=== PATIENT | male | born 1975 | race Caucasian/White ===

== ENCOUNTER 2017-04-01 20:05 | Emergency (ER) | payer SELFPAY ==
[2017-04-01 20:12] VITALS: BP 177/98; BMI 49.8
--- NOTE | 2017-04-01 23:09 | RAD ---
Three views of the left hip Indication: Classic coming from 3rd finger Findings: There is mild soft tissue swelling within the middle finger, no localizing soft tissue flui d collection or gas identified. There is cortical regularity at the base of the little finger proximal phalanx without definite lucen cy suggesting sequela of previous intra-articular fracture. Additionally there appears to be a healed fracture deformity of the ring finger metacarpal bone. Radiocarpal joint spaces and alignment are ma intained. Impression: Soft tissue swelling surrounding the middle finger distal phalanx is nonspecific however suspicious for cellulitis given patient history. No fracture, dislocation or radiopaque foreign body identified within the middle finger. Suspected chronic fracture deformities of the little finger proximal phalangeal base and ring finger metacarpal bone; however, clinical correlation for point tenderness and exclusion of acute injury in this location is recommended. Reported By:
--- NOTE | 2017-04-01 23:21 | DR.EXTPAIN ---
HPI - Time seen Time seen: 22:30 - PCP Primary Care Physician: SARAH - HPI Comment HPI Comment: SMALL DRAINAGE NOTED WHEN PATIENT SQUEEZED LESION AT HOME. NO FEVER. PAIN WORSE TODAY. - Complaint/Symptoms Chief Complaint Doctor Comments: PAIN SWELLING AND REDNESS LEFT MIDDLE FINGER TIMES FEW DAYS. Chief Complaint:: LEFT HAND, 3RD DIGIT PAIN, EDEMA. STATES, "I HAVE HAD A CALLOUS THERE FOR APPROXIMATELY A YEAR, I SQUEEZED IT AND PUS COME OUT. NOW ALL MY FINGERS ARE SORE." - Nurses notes reviewed Nurses Notes Review: Yes - Source History Provided: Patient - Mode of arrival Mode of Arrival: Ambulatory - Timing Onset of Chief Complaint: 03/31/17 - Context History of: None - Associated signs and symptoms Associated Signs and Symptoms: Pain, Swelling PMH - PMH Past Medical History: Yes Past Medical History: Hypertension Past Surgical History: No - Family History History of Family Medical Conditions: Yes Family Medical History: Coronary Artery Disease, Hypertension - Social History Type of Tobacco Use: Cigarettes Alcohol Use: None Do you use any recreational Drugs:: No Lives With: Significant Other Lives Where: Home - infectious screening Have you traveled outside the country in the last 6 months?: No Isolation: Standard ROS - Review of Systems Constitutional: No Symptoms Reported Eyes: No Symptoms Reported ENTM: No Symptoms Reported Respiratoy: No Symptoms Reported Cardiovascular: No Symptoms Reported Gastrointestinal/Abdominal: No Symptoms Reported Genitourinary: No Symptoms Reported Neurological: No Symptoms Reported Integumentary: Change in Color, Lesions (ABSCESS AND CELLULITIS LEFT MIDDLE FINGER.) Hematologic/Lymphatic: No Symptoms Reported Endocrine: No Symptoms Reported All Other Systems: Reviewed and Negative PE - Vital Signs Vitals: Temperature 98.2 F Pulse Rate 96 Respiratory Rate 20 Blood Pressure 177/98 O2 Sat by Pulse Oximetry 95 - General Limitations: No Limitations General Appearance: Alert - Head Head Exam: Normal Inspection - Eyes Eye exam: Normal Appearance - ENT ENT Exam: Normal External Ear Exam - Neck Neck Exam: Normal Inspection - Chest Chest Inspection: Symmetric Chest Wall Rise - Respiratory Respiratory Exam: Normal Lung Sounds Bilat Respiratory Exam: Bilateral Clear to Auscultation - Cardiovascular Cardiovascular Exam: Regular Rate, Normal Rhythm, Normal Heart Sounds - Abdominal Exam Abdominal Exam: Normal Inspection - Extremities Extremities Exam: Tenderness (SWELLING, REDNESS AND TENDERNESS LT MIDDLE FINGER. ) - Lower Extremities Neurovascular/Tendon Exam: Normal Capillary Refill Gait Exam: Observed and Normal - Back Back Exam: Normal Inspection - Neurological Neurological Exam: Alert, Oriented X3 - Psychiatric Psychiatric Exam: Normal Affect, Normal Mood - Skin Skin Exam: Erythema MDM - Differential Diagnosis Differential Diagnosis: Other (CELLULITIS, ABSCESS. LT MIDDLE FONGER INFECTION) Course - Treatment Treatment: SEE ORDERS. - Education/Counseling Education/Counseling: Patient, Family, Education Educated On: Treatment, Diagnosis, Needs for Follow Up ROR - Labs Reviewed Laboratory: 04/01/17 03:26 Hand - Left Gram Stain - Final 04/01/17 03:26 Hand - Left Wound Culture - Preliminary - XRAY XRAY Interpreted by: Radiologist XRAY Findings: REPORT DISCUSS WITH PATIENT. Procedures - Incision and Drainage Blade Size: 11 I & D Procedure: betadine prep, sterile dressing applied Progress: I&D DONE ON LEFT DISTAL MIDDLE FINGER. SMALL AMOUNT OF PUS DRAINED. - Diagnosis Discharge Problem: Abscess, Infection of fingernail of left hand Cellulitis Qualifiers: Site of cellulitis: extremity Site of cellulitis of extremity: finger Laterality: left Qualified Code(s): L03.012 - Cellulitis of left finger - Discharge Plan Disposition: 01 HOME, SELF-CARE Condition: Stable Prescriptions: Clindamycin HCl 300 mg PO Q6H #40 cap Sulfamethoxazole/Trimethoprim [Bactrim 400-80 mg] 1 tab PO Q12H #20 tab Tramadol HCl 50 mg PO Q8H PRN #15 tablet PRN Reason: - Follow ups/Referrals Follow ups/Referrals: NFD,None [Primary Care Provider] - 04/05/17 - Instructions Instructions: Abscess, [id number], Cellulitis, Adult, [id number] Additional Instructions: RETURN TO ED IF WORSE.
[2017-04-02] MEDS ORDERED: ANCEF VIAL 1 GM IM ONE (01:18)
[2017-04-02] MEDS ORDERED: TORADOL 60 MG VIAL IM ONE (01:18)
[2017-04-02] MEDS ORDERED: BACTRIM DS TAB PO ONE ×2 (01:18→01:27)
[2017-04-02] MEDS ORDERED: CLEOCIN PO ONE (01:19)
[2017-04-02] MEDS ORDERED: TORADOL 60 MG VIAL ONE (01:26)
[2017-04-02] MEDS ORDERED: CLEOCIN ONE (01:27)
[2017-04-02] MEDS ORDERED: ANCEF VIAL 1 GM ONE (01:27)
== END 2017-04-02 01:46 | disposition home or self-care (01) ==
LOC: ER 20:23
DX: L02.512 Cutaneous abscess of left hand (principal); L03.012 Cellulitis of left finger; L08.9 Local infection of the skin and subcutaneous tissue, unspecified
CPT/HCPCS: 73130; 87070; 87075; 87077; 87186; 87205; 96372; 99282; 99283; J0690; J1885

== ENCOUNTER 2024-07-28 07:30 | Observation (INO) ==
[2024-07-28] MEDS: NOZIN NASAL SANITIZER TP ONE (10:47)
[2024-07-28] MEDS: LR 1,000 ML IV 1,000 ML IV ONE ×2 (10:48→13:57)
[2024-07-28 11:32] VITALS: BMI 42.5
[2024-07-28] MEDS: LR IV PRN (12:10)
[2024-07-28] MEDS: ZOFRAN INJ 4 MG VIAL IVP PRN (12:10)
[2024-07-28] MEDS: PEPCID 20 MG VIAL IVP PRN (12:10)
[2024-07-28] MEDS: VERSED IVP PRN (12:10)
[2024-07-28] MEDS ORDERED: ULTANE GAS IN ONE (12:16)
[2024-07-28] MEDS: QUELICIN (OR ANECTINE) ONE (12:16)
[2024-07-28] MEDS: ANCEF VIAL 1 GRAM IV PRN (12:16)
[2024-07-28] MEDS: ZEMURON 100 MG VIAL ONE (12:16)
[2024-07-28] MEDS: VERSED ONE (12:16)
[2024-07-28] MEDS: FENTANYL VIAL INJ 100 mcg ONE (12:16)
[2024-07-28] MEDS: PEPCID 20 MG VIAL ONE (12:16)
[2024-07-28] MEDS ORDERED: KETAMINE HCL ONE (12:16)
[2024-07-28] MEDS: ZOFRAN INJ 4 MG VIAL ONE (12:16)
[2024-07-28] MEDS: XYLOCAINE 2 % (PLAIN) ONE (12:16)
[2024-07-28] MEDS: DIPRIVAN VIAL 20 ML ONE ×2 (12:16→13:51)
[2024-07-28] MEDS: ANCEF VIAL 1 GRAM ONE (12:17)
[2024-07-28] MEDS: NS 100 ML IV 100 ML ONE (12:17)
[2024-07-28] MEDS: PRECEDEX INJ VIAL ONE (12:22)
[2024-07-28] MEDS ORDERED: XYLOCAINE 2 % (PLAIN) PRN (12:23)
[2024-07-28] MEDS: FENTANYL VIAL INJ 100 mcg IVP PRN (12:23)
[2024-07-28] MEDS: QUELICIN (OR ANECTINE) IVP PRN (12:24)
[2024-07-28] MEDS: ROBINUL IVP PRN (12:35)
[2024-07-28] MEDS: MARCAINE 0.25% INJ ONE (12:47)
[2024-07-28] MEDS: NEO-SYNEPHRINE INJ ONE (13:22)
[2024-07-28] MEDS: DIPRIVAN IVP PRN (13:51)
[2024-07-28] MEDS: OFIRMEV IV 1000 MG VIAL 1,000 MG/100 ML VIAL IV ONE (13:54)
[2024-07-28] MEDS: OFIRMEV IV 1000 MG VIAL 1,000 MG/100 ML VIAL IV PRN (13:55)
[2024-07-28] MEDS: DILAUDID INJ ONE ×2 (13:59→16:28)
[2024-07-28] MEDS: KETAMINE HCL IV PRN (14:12)
[2024-07-28] MEDS ORDERED: BARHEMSYS INJ IVP PRN (14:32)
[2024-07-28] MEDS ORDERED: BENADRYL INJ 50 MG VIAL IVP PRN (14:32)
[2024-07-28] MEDS ORDERED: REGLAN INJ 10 MG VIAL IVP PRN (14:32)
[2024-07-28] MEDS ORDERED: ZOFRAN INJ 4 MG VIAL IVP PRN (14:32)
[2024-07-28] MEDS: BRIDION ONE (14:36)
[2024-07-28] MEDS: TORADOL 30 MG VIAL ONE (14:37)
[2024-07-28] MEDS: TORADOL 30 MG VIAL IVP PRN (14:38)
[2024-07-28] MEDS: ULTANE GAS IN ONE (14:39)
[2024-07-28] MEDS: DILAUDID INJ IVP PRN ×3 (15:12→21:20)
[2024-07-28] MEDS: PRECEDEX INJ VIAL IVP PRN (15:14)
[2024-07-28] MEDS: ZEMURON 100 MG VIAL IVP PRN (15:18)
[2024-07-28] MEDS: NEO-SYNEPHRINE INJ IVP PRN (15:31)
[2024-07-28] MEDS: HYDROGEN PEROXIDE 3% ONE (15:43)
[2024-07-28] MEDS: BRIDION IVP PRN (15:53)
[2024-07-28] MEDS: BENADRYL INJ 50 MG VIAL IVP ONE (18:21)
[2024-07-28] MEDS: PERCOCET TAB 5/325 MG PO PRN (18:22)
--- NOTE | 2024-07-29 07:52 | NOTE.SOAP ---
Soap Note Note for Day of Date of Exam: 07/29/24 Subjective Data Subjective Data: pt seen at bedside. resting comfortably. NAD. having pressure in the foot and ankle. mostly top of ankle. Objective Data Objective Data: frame stable. no loosening. has minimal strikethrough on bandage. has instant CFT to toes. no ischemia. has motor to toes. Assessment Assessment: 48 M POD #1 from [facility] with reduction of dislocations and ex fix application. Plan Plan: Pain controlled with oxycodone 10mg. wrote for 5mg and will double up outpatient if needed. DVT prophylaxis. - rx lovenox and will do daily for 30 days WB_ ok to partially WB on ex fix with assistive device. has walker at home. frame stable and will load through foot. has wrap on foot and has skis that will partially bear weight. has wheelchair at home as well. bandage changed today. has sponges and clips on chart to go home with patient. Will see me outpatient in office next week.
[2024-07-29 08:13] VITALS: BP 138/84; PULSE 74; TEMP 97.7; O2SAT 97
[2024-07-29 08:19] LABS: BASOPHILS # (AUTO) 0.1 X10^3/uL (0.0-0.1); BASOPHILS % (AUTO) 0.7 % (0.2-1.0); EOSINOPHILS # (AUTO) 0.5 x10^3/uL (0.0-0.2); EOSINOPHILS % (AUTO) 4.6 % (0.9-2.9); HEMATOCRIT 44.6 % (42.0-54.0); HEMOGLOBIN 15.4 g/dL (13.5-18.0); LYMPHOCYTES # (AUTO) 2.2 X10^3/uL (1.3-2.9); LYMPHOCYTES % (AUTO) 19.8 % (21.0-51.0); MEAN CORPUSCULAR HEMOGLOBIN 32.6 pg (27.0-34.0); MEAN CORPUSCULAR HGB CONC 34.6 g/dL (33.0-35.0); MEAN CORPUSCULAR VOLUME 94.3 fL (80.0-100.0); MONOCYTES # (AUTO) 1.2 x10^3/uL (0.3-0.8); MONOCYTES % (AUTO) 10.6 % (0.0-13.0); NEUTROPHILS # (AUTO) 7.1 x10^3/uL (2.2-4.8); NEUTROPHILS % (AUTO) 64.3 % (42.0-75.0); PLATELET COUNT 114 X10^3/uL (150.0-450.0); RED BLOOD COUNT 4.73 X10^6/uL (4.7-6.0); WHITE BLOOD COUNT 11.1 X10^3/uL (3.6-10.0)
[2024-07-29 08:32] LABS: ALANINE AMINOTRANSFERASE 22 Units/L (12-78); ALBUMIN 3.4 g/dL (3.4-5.0); ALKALINE PHOSPHATASE 78 Units/L (46-116); ASPARTATE AMINO TRANSFERASE 15 Units/L (15-37); BLOOD UREA NITROGEN 17 mg/dL (7-18); CALCIUM 8.6 mg/dL (8.5-10.1); CARBON DIOXIDE 28.1 mmol/L (21-32); CHLORIDE 102 mmol/L (98-107); CREATININE 1.17 mg/dL (0.70-1.30); GLUCOSE 94 mg/dL (65-99); POTASSIUM 4.1 mmol/L (3.5-5.1); SODIUM 138 mmol/L (136-145); TOTAL PROTEIN 6.9 g/dL (6.4-8.2); eGFR NON BLACK RACES > 60 (>60)
[2024-07-29 13:20] VITALS: RESP 20
== END 2024-07-29 11:05 | disposition home or self-care (01) ==
LOC: MED/SURG → EDSTATUS 07:30 → UNDODISOB 07-29 11:11
PROVIDERS: ADMIT Obstetrics & Gynecology Obstetrics; ATTEND Obstetrics & Gynecology Obstetrics
PROC: MIDFOOT (2024-07-28 12:45)
PROC: APEXFIX (2024-07-28 12:45)
DX: M24.572 Contracture, left ankle; G89.18 Other acute postprocedural pain; X58.XXXA Exposure to other specified factors, initial encounter; S93.312A Subluxation of tarsal joint of left foot, initial encounter; M14.672 Charcot's joint, left ankle and foot; M19.072 Primary osteoarthritis, left ankle and foot